=== PATIENT | male | born 1960 | race Caucasian/White ===

== ENCOUNTER 2024-09-28 13:25 | Emergency (ER) | payer MEDICARE, OTHER ==
[~2024-09-28] VITALS: Ht 188 cm; Wt 97.7 kg
[2024-09-28 13:30] VITALS: BP 132/55; RESP 24; TEMP 98.2; O2SAT 95
[2024-09-28 13:43] VITALS: PULSE 95
--- NOTE | 2024-09-28 13:43 | ED.PDOC ---
History of Present Illness HPI Comments 64 year old male with a History of DM, HTN and Depression was BIBA for the c/c of Dizziness. Pt states that he has been feeling Dizzy for the past 1x week, with an associated HOPKINS, and /D. Pt also notes of urine retention that has been onset for the past 4x days even though he noted drinking lots of Fluid. Pt notes of a Social Hx of Tobacco use, and mild Alcohol use, his last drink being this past Saturday. Pt denies any N/V or sick contact. No other symptoms or modifying factors reported at this time. Time Seen by MD: 13:38 Reviewed Notes: Nurses Notes, Electrician Refinery Notes, Medications, Allergies Allergies: Coded Allergies: Penicillins (Verified Allergy, Unknown, 09/28/24) Information Source: Patient, Emergency Med Personnel Mode of Arrival: EMS Severity: Moderate Timing: Weeks Duration: Since onset Prehospital treatment: Accucheck, Oxygen Past Medical History PAST MEDICAL HISTORY: Depression, DM, HTN Surgical History: Denies all surgeries Family History Family History: Reviewed,noncontributory to illness, No family hx of Cancer, No family hx of DM, No family hx of Heart tessa, No family hx of HTN, No family hx ofKidney tessa, No family hx of Liver tessa, No family hx of Lung tessa, No family hx of Stroke Social History Smoker: Cigarettes Alcohol: Occasionally Drugs: Denies Drug Use Lives In: Home Constitutional: denies: chills, diaphoresis, fatigue, fever, malaise, sweats, weakness, others EENTM: denies: blurred vision, double vision, ear bleeding, ear discharge, ear drainage, ear pain, ear ringing, eye pain, eye redness, hearing loss, mouth pain, mouth swelling, nasal discharge, nose bleeding, nose congestion, nose pain, photophobia, tearing, throat pain, throat swelling, voice changes, others Respiratory: denies: cough, hemoptysis, orthopnea, SOB at rest, shortness of breath, SOB with excertion, stridor, wheezing, others Cardiovascular: denies: chest pain, dizzy spells, diaphoresis, Dyspnea on exertion, edema, irregular heart beat, left arm pain, lightheadedness, palpitations, PND, syncope, others Gastrointestinal: denies: abdomen distended, abdominal pain, blood streaked bowels, constipated, diarrhea, dysphagia, difficulty swallowing, hematemesis, melena, nausea, poor appetite, poor fluid intake, rectal bleeding, rectal pain, vomiting, others Genitourinary: denies: burning, dysuria, flank pain, frequency, hematuria, incontinence, penile discharge, penile sore, pain, testicle pain, testicle swelling, urgency, others Neurological: reports: dizziness, headache; denies: fainting, left sided numbness, left sided weakness, numbness, paresthesia, pre-existing deficit, right sided numbness, right sided weakness, seizure, speech problems, tingling, tremors, weakness, others Musculoskeletal: denies: back pain, gout, joint pain, joint swelling, muscle pain, muscle stiffness, neck pain, others Integumetry: denies: bruises, change in color, change in hair/nails, dryness, laceration, lesions, lumps, rash, wounds, others Allergic/Immunocompromised: denies: Difficulty Healing, Frequent Infections, Hives, Itching, others Hematologic/Lymphatic: denies: anemia, blood clots, easy bleeding, easy bruising, swollen glands, others Endocrine: denies: excessive hunger, excessive sweating, excessive thirst, excessive urination, flushing, intolerance to cold, intolerance to heat, unexplained weight gain, unexplained weight loss, others Psychiatric: denies: anxiety, bipolar disorder, depression, hopeless, panic disorder, schizophrenia, sleepless, suicidal, others All Other Systems: Reviewed and Negative Physical Exam General Appearance: Mild Distress HEENT: Normal ENT Inspection, Pharynx Normal, TMs Normal Neck: Full Range of Motion, Non-Tender, Normal, Normal Inspection Respiratory: Chest Non-Tender, Lungs Clear, No Accessory Muscle Use, No Respiratory Distress, Normal Breath Sounds Cardiovascular: No Edema, No JVD, No Murmur, No Gallop, Normal Peripheral Pulses, Regular Rate/Rhythm Breast Exam: Deferred Gastrointestinal: No Organomegaly, Non Tender, No Pulsatile Mass, Normal Bowel Sounds, Soft Genitalia: Deferred Pelvic: Deferred Rectal: Deferred Extremities: No calf tenderness, Normal capillary refill, Normal inspection, Normal range of motion, Non-tender, No pedal edema Musculoskeletal : Apperance: Normal Neurologic: Alert, 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 Was a procedure done?: No EKG EKG : Pulse Rate (adult): 95 [place]: RAD Cardiac Rhythm: NSR Block: None Hypertrophy: None ST: Normal Differential Dx Considerations may include: Vertigo, autonomic dysfunction, generalized weakness, electrolyte imbalance X-Ray, Labs, Meds, VS Vital Signs Date Time Temp Pulse Resp B/P (MAP) Pulse Ox O2 Delivery O2 Flow Rate FiO2 09/28/24 16:07 Room Air* 0 21 09/28/24 13:43 95 09/28/24 13:39 95 09/28/24 13:30 98.2 100 24 132/55 (80) 95 98.2 Lab Test 09/28/24 13:57 Range/Units White Blood Count 14.6 H 4.4-10.8 10^3/uL Red Blood Count 5.07 4.5-5.90 10^6/uL Hemoglobin 17.7 H 13.5-17.5 g/dL Hematocrit 51.0 41.0-53.0 % Mean Corpuscular Volume 100.5 H 80.0-100.0 fL Mean Corpuscular Hemoglobin 34.9 H 28.0-32.0 pg Mean Corpuscular Hemoglobin Concent 34.7 32.0-36.0 g/dL Red Cell Distribution Width 13.1 11.8-14.3 % Platelet Count 173 140-450 10^3/uL Mean Platelet Volume 9.6 6.9-10.8 fL Neutrophils (%) (Auto) 80.7 H 37.0-80.0 % Lymphocytes (%) (Auto) 5.6 L 10.0-50.0 % Monocytes (%) (Auto) 13.0 H 0.0-12.0 % Eosinophils (%) (Auto) 0.5 0.0-7.0 % Basophils (%) (Auto) 0.2 0.0-2.0 % Neutrophils # (Auto) 11.8 H 1.6-8.6 10 ^3/uL Lymphocytes # (Auto) 0.8 0.4-5.4 10 ^3/uL Monocytes # (Auto) 1.9 H 0-1.3 10 ^3/uL Eosinophils # (Auto) 0.1 0-0.8 10 ^3/uL Basophils # (Auto) 0 0-0.2 10 ^3/uL Nucleated Red Blood Cells 0.0 % Sodium Level 122 L 136-145 mmol/L Potassium Level 4.3 3.5-5.1 mmol/L Chloride Level 87 L 98-107 mmol/L Carbon Dioxide Level 27 20-31 mmol/L Anion Gap 8 5-15 Blood Urea Nitrogen 12 9-23 mg/dL Creatinine 0.94 0.700-1.30 mg/dL Glomerular Filtration Rate Calc 89 >90 mL/min BUN/Creatinine Ratio 12.8 10.0-20.0 Serum Glucose 112 H 74-106 mg/dL Calcium Level 9.2 8.7-10.4 mg/dL Current Medications Medications (Trade) Dose Ordered Sig/Anita Route Start Time Stop Time Status Last Admin Sodium Chloride 500 ml @ 500 mls/hr Q1H ONCE IV 09/28/24 13:45 09/28/24 14:44 DC 09/28/24 13:45 IMPRESSION: 1. No acute cardiopulmonary disease. The patient was given normal saline at a 500 cc bolus The patient's CBC shows an elevated white blood cell count of 14.6 The chemistry panel is within normal limits Prior to the urine test arriving, the patient has decided that he is going to leave AMA Images Reviewed?: Images reviewed and evaluated by me Time of 1ST Reevaluation: 14:08 Reevaluation 1ST: Unchanged Patient Education/Counseling: Diagnosis, Treatment, Prognosis Family Education/Counseling: No Family Present SEPSIS Sepsis Screen Physician Orders Electrocardigram (09/28/24 13:43) Urinalysis (09/28/24 13:43) Heplock Iv (09/28/24 13:43) Automotive Design Layout Drafter (09/28/24 13:43) Blood Pressure (09/28/24 13:43) Pulse Oximetry (09/28/24 13:43) Chest Portable (09/28/24 13:43) Vital Signs Date Time Temp Pulse Resp B/P (MAP) Pulse Ox O2 Delivery O2 Flow Rate FiO2 09/28/24 16:07 Room Air* 0 21 09/28/24 13:43 95 09/28/24 13:39 95 09/28/24 13:30 98.2 100 24 132/55 (80) 95 98.2 Laboratory Tests Test 09/28/24 13:57 White Blood Count 14.6 10^3/uL (4.4-10.8) H Medications Medications Dose Ordered Sig/Anita Route Start Time Stop Time Status Last Admin Dose Admin Sodium Chloride 500 ml @ 500 mls/hr Q1H ONCE IV 09/28/24 13:45 09/28/24 14:44 DC 09/28/24 13:45 Departure 1 Departure Time of Disposition: 18:47 Impression: Primary Impression: Autonomic dysfunction Disposition: ADMITTED INPATIENT Admit to: Tele Condition: Fair Critical Care Note Critical Care Time?: No Stability Stability form required: Yes Unstable for transfer: Telemetry monitoring (Telemetry monitoring required), ED Physician Assesment (Clinical assesment) Heart Score Heart Score: Heart Score Response (Comments) Value History N/A 0 EKG N/A 0 Age N/A 0 Risk Factors N/A 0 Troponin N/A 0 Total 0 I personally scribed for FAITH PITT MD ([email or web address]) on 09/28/24 at 13:43. Electronically submitted by Gennaro Lan ([email or web address]). I personally scribed for FAITH PITT MD ([email or web address]) on 09/28/24 at 14:38. Electronically submitted by Gennaro Lan ([email or web address]). FAITH PITT MD Sep 28, 2024 13:43
[2024-09-28] MEDS: SODIUM CHLORIDE 0.9% 500 ML IV ONE (13:45)
[2024-09-28 14:14] LABS: Basophils # (auto) 0 10 ^3/uL (0-0.2); Basophils % (auto) 0.2 % (0.0-2.0); Eosinophils # (auto) 0.1 10 ^3/uL (0-0.8); Lymphocytes # (auto) 0.8 10 ^3/uL (0.4-5.4); Red Cell Distribution Width 13.1 % (11.8-14.3)
[2024-09-28 14:16] LABS: Eosinophils % (auto) 0.5 % (0.0-7.0); Hemoglobin 17.7 g/dL (13.5-17.5); Lymphocytes % (auto) 5.6 % (10.0-50.0); Mean Corpuscular Hemoglobin 34.9 pg (28.0-32.0); Mean Corpuscular Hgb Conc. 34.7 g/dL (32.0-36.0); Mean Corpuscular Volume 100.5 fL (80.0-100.0); Monocytes # (auto) 1.9 10 ^3/uL (0-1.3); Neutrophils # (auto) 11.8 10 ^3/uL (1.6-8.6); Neutrophils % (auto) 80.7 % (37.0-80.0); Platelet Count (auto) 173 10^3/uL (140-450); Red Blood Cells 5.07 10^6/uL (4.5-5.90); White Blood Cell 14.6 10^3/uL (4.4-10.8)
[2024-09-28 14:25] LABS: Anion Gap 8 (5-15); Chloride 87 mmol/L (98-107); Potassium 4.3 mmol/L (3.5-5.1); Sodium 122 mmol/L (136-145)
[2024-09-28 14:28] LABS: BUN/Creatinine Ratio 12.8 (10.0-20.0); Blood Urea Nitrogen 12 mg/dL (9-23)
[2024-09-28 14:32] LABS: Carbon Dioxide 27 mmol/L (20-31); Glucose 112 mg/dL (74-106)
[2024-09-28 14:33] LABS: Calcium 9.2 mg/dL (8.7-10.4)
--- NOTE | 2024-09-28 14:35 | DVH ---
CHEST RADIOGRAPH Indication: weakness Technique: Single frontal view of the chest was obtained Comparison: None FINDINGS: Lines and Tubes: None Lungs: No focal consolidation. Pleura: No effusion. No pneumothorax. Cardiomediastinal contours: Unremarkable Bones: No acute osseous abnormality. IMPRESSION: 1. No acute cardiopulmonary disease.
== END 2024-09-28 17:37 | disposition left against medical advice (07) ==
LOC: ER 13:25 → EDBD 13:25 → ER 17:37
DX: E11.43 Type 2 diabetes mellitus with diabetic autonomic (poly)neuropathy (principal); F17.210 Nicotine dependence, cigarettes, uncomplicated; F10.90 Alcohol use, unspecified, uncomplicated; F32.A Depression, unspecified; I10 Essential (primary) hypertension; Z88.0 Allergy status to penicillin; Y90.9 Presence of alcohol in blood, level not specified
CPT/HCPCS: 36415; 71045; 80048; 85025; 99284; J7040

== ENCOUNTER 2025-03-30 04:20 | Emergency (ER) | payer MEDICARE ==
[~2025-03-30] VITALS: Ht 188 cm; Wt 91.0 kg
--- NOTE | 2025-03-30 07:02 | ED.PDOC ---
History of Present Illness HPI Comments 64-year-old male presents to the ER with prior medical history of depression, hypertension, diabetes in the chief complaint of shortness a breath status post fall. Patient reports the he woke up 0 100 this morning to use the bathroom and as he was in the bathroom he tripped and fell hitting his nose and throat against the sink. Patient states that he currently has a very sore throat and does not speak like this in a very scrappy voice. She is currently requesting a scan to his throat. Denies any other symptoms at this time. Denies chills, fever, N/V/D, CP. No other associated symptoms, modifiers, recent injuries or sick contacts present at this time. Chief Complaint: Shortness of Breath Time Seen by MD: 07:02 Reviewed Notes: Nurses Notes, Medications, Allergies Allergies: Coded Allergies: Penicillins (Verified Allergy, Unknown, 09/28/24) Information Source: Patient Mode of Arrival: EMS Severity: Moderate Timing: Hours Duration: Since onset, Hours Prehospital treatment: None Past Medical History PAST MEDICAL HISTORY: Depression, DM, HTN Surgical History: Denies all surgeries Family History Family History: Reviewed,noncontributory to illness, Unknown Social History Smoker: Cigarettes Alcohol: Occasionally Drugs: Denies Drug Use Lives In: Home Constitutional: denies: chills, diaphoresis, fatigue, fever, malaise, sweats, weakness, others EENTM: reports: throat pain, voice changes; denies: blurred vision, double vision, ear bleeding, ear discharge, ear drainage, ear pain, ear ringing, eye pain, eye redness, hearing loss, mouth pain, mouth swelling, nasal discharge, no se bleeding, nose congestion, nose pain, photophobia, tearing, throat swelling, others Respiratory: denies: cough, hemoptysis, orthopnea, SOB at rest, shortness of breath, SOB with excertion, stridor, wheezing, others Cardiovascular: denies: chest pain, dizzy spells, diaphoresis, Dyspnea on exertion, edema, irregular heart beat, left arm pain, lightheadedness, palpitations, PND, syncope, others Gastrointestinal: denies: abdomen distended, abdominal pain, blood streaked bowels, constipated, diarrhea, dysphagia, difficulty swallowing, hematemesis, melena, nausea, poor appetite, poor fluid intake, rectal bleeding, rectal pain, vomiting, others Genitourinary: denies: burning, dysuria, flank pain, frequency, hematuria, incontinence, penile discharge, penile sore, pain, testicle pain, testicle swelling, urgency, others Neurological: denies: dizziness, fainting, headache, left sided numbness, left sided weakness, numbness, paresthesia, pre-existing deficit, right sided numbness, right sided weakness, seizure, speech problems, tingling, tremors, weakness, others Musculoskeletal: denies: back pain, gout, joint pain, joint swelling, muscle pain, muscle stiffness, neck pain, others Integumetry: denies: bruises, change in color, change in hair/nails, dryness, laceration, lesions, lumps, rash, wounds, others Allergic/Immunocompromised: denies: Difficulty Healing, Frequent Infections, Hives, Itching, others Hematologic/Lymphatic: denies: anemia, blood clots, easy bleeding, easy bruising, swollen glands, others Endocrine: denies: excessive hunger, excessive sweating, excessive thirst, excessive urination, flushing, intolerance to cold, intolerance to heat, unexplained weight gain, unexplained weight loss, others Psychiatric: denies: anxiety, bipolar disorder, depression, hopeless, panic dis order, schizophrenia, sleepless, suicidal, others All Other Systems: Reviewed and Negative Physical Exam General Appearance: Moderate Distress, Normal HEENT: Normal ENT Inspection, Pharynx Normal, TMs Normal Neck: Full Range of Motion, Non-Tender, Normal, Normal Inspection Respiratory: Chest Non-Tender, Lungs Clear, No Accessory Muscle Use, No Respiratory Distress, Normal Breath Sounds Cardiovascular: No Edema, No JVD, No Murmur, No Gallop, Normal Peripheral Pulses, Regular Rate/Rhythm Breast Exam: Deferred Gastrointestinal: No Organomegaly, Non Tender, No Pulsatile Mass, Normal Bowel Sounds, Soft Genitalia: Deferred Pelvic: Deferred Rectal: Deferred Extremities: No calf tenderness, Normal capillary refill, Normal inspection, Normal range of motion, Non-tender, No pedal edema Musculoskeletal : Apperance: Normal Neurologic: Alert, 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 Was a procedure done?: No Differential Dx Considerations may include: Alcohol abuse Electrolyte imbalance X-Ray, Labs, Meds, VS Vital Signs Date Time Temp Pulse Resp B/P (MAP) Pulse Ox O2 Delivery O2 Flow Rate FiO2 03/30/25 14:53 98.2 83 18 158/82 (107) 91 98.2 03/30/25 08:04 98.0 95 17 148/85 (106) 98.0 03/30/25 04:36 98.9 20 94 135/92 (106) 90 98.9 03/30/25 04:29 98.9 90 20 135/92 94 98.9 Lab Test 03/30/25 08:18 03/30/25 08:09 Range/Units White Blood Count 9.8 4.4-10.8 10^3/uL Red Blood Count 4.99 4.5-5.90 10^6/uL Hemoglobin 17.2 13.5-17.5 g/dL Hematocrit 50.8 41.0-53.0 % Mean Corpuscular Volume 101.7 H 80.0-100.0 fL Mean Corpuscular Hemoglobin 34.4 H 28.0-32.0 pg Mean Corpuscular Hemoglobin Concent 33.8 32.0-36.0 g/dL Red Cell Distribution Width 14.3 11.8-14.3 % Platelet Count 215 140-450 10^3/uL Mean Platelet Volume 8.7 6.9-10.8 fL Neutrophils (%) (Auto) 85.3 H 37.0-80.0 % Lymphocytes (%) (Auto) 5.0 L 10.0-50.0 % Monocytes (%) (Auto) 8.9 0.0-12.0 % Eosinophils (%) (Auto) 0.1 0.0-7.0 % Basophils (%) (Auto) 0.7 0.0-2.0 % Neutrophils # (Auto) 8.3 1.6-8.6 10 ^3/uL Lymphocytes # (Auto) 0.5 0.4-5.4 10 ^3/uL Monocytes # (Auto) 0.9 0-1.3 10 ^3/uL Eosinophils # (Auto) 0 0-0.8 10 ^3/uL Basophils # (Auto) 0.1 0-0.2 10 ^3/uL Nucleated Red Blood Cells 0.0 % Sodium Level 138 136-145 mmol/L Potassium Level 4.6 3.5-5.1 mmol/L Chloride Level 101 98-107 mmol/L Carbon Dioxide Level 28 20-31 mmol/L Anion Gap 9 5-15 Blood Urea Nitrogen 9 9-23 mg/dL Creatinine 0.82 0.700-1.30 mg/dL Glomerular Filtration Rate Calc 97 >90 mL/min BUN/Creatinine Ratio 11.0 10.0-20.0 Serum Glucose 111 H 74-106 mg/dL Calcium Level 9.4 8.7-10.4 mg/dL Total Bilirubin 0.8 0.2-1.0 mg/dL Aspartate Amino Transferase (AST) 56 H 13-40 U/L Alanine Aminotransferase (ALT) 38 7-40 U/L Alkaline Phosphatase 132 H 46-116 U/L Troponin I High Sensitivity 8 </=54 ng/L Total Protein 7.7 5.7-8.2 g/dL Albumin 4.4 3.2-4.8 g/dL Plasma/Serum Blood Alcohol < 3.0 <10 mg/dL Urine Color Yellow Yellow Urine Clarity Turbid H Clear Urine pH 6.0 5.0-9.0 Urine Specific [place] 1.010 1.001-1.035 Urine Protein Trace H Negative Urine Ketones 1+ H Negative Urine Blood 1+ H Negative /uL Urine Nitrite Negative Negative Urine Bilirubin Negative Negative Urine Urobilinogen Normal Negative mg/dL Urine Leukocyte Esterase 3+ Negative /uL Urine RBC 9 0 - 3 /hpf Urine WBC Clumps Present None Seen /hpf Urine Microscopic WBC 804 H 0-3 /HPF Urine Squamous Epithelial Cells Few <5 /hpf Urine Bacteria Few H None Seen /hpf Urine Mucus Few None Seen Urine Glucose Normal Normal mg/dL Current Medications Medications (Trade) Dose Ordered Sig/Anita Route Start Time Stop Time Status Last Admin Sodium Chloride 1,000 ml @ 1,000 mls/hr Q1H ONCE IV 03/30/25 07:00 03/30/25 07:59 DC 03/30/25 08:01 Sodium Chloride 1,000 ml @ 150 mls/hr Q6H40M ONCE IV 03/30/25 07:00 03/30/25 13:39 DC 03/30/25 09:12 Patient alert. Complaining of scratchy voice. All started after fall. Vitals stable. Answering questions. Saturation in the low side. Continues smoke cigarettes. Drinks every day. Counseled patient on effects of smoking cigarettes for 15 minutes. Counseled patient on effects of drinking for 15 minutes. Explained to the patient. Hospitalist was concerned to admit the patient. There is a concern because of swelling of the neck. Clinically normal. CT scan does reveal edema. Urinalysis shows UTI. Was given Rocephin. Transferred for higher level of care. Time of 1ST Reevaluation: 07:30 Reevaluation 1ST: Unchanged Patient Education/Counseling: Diagnosis, Treatment, Prognosis Family Education/Counseling: No Family Present SEPSIS Sepsis Screen Date sepsis recognized/suspect: Mar 30, 2025 Time Sepsis recognized/suspect: 421 Recent Procedure: No On Antibiotic Therapy: No Respiratory Rate >20: No Heart Rate >90: No Temp<36 C (96.8 F) or >38.3 C: No SBP <90 or MAP <65 mmHG: No New Acute Mental Status Change: No Is the patient on CPAP, BIPAP,: No Physician Orders Electrocardigram (03/30/25 04:34) Electrocardigram (03/30/25 05:34) Electrocardigram (03/30/25 07:34) Neck For Soft Tissue (03/30/25 06:47) Chest Portable (03/30/25 06:48) Neck With Contrast Soft (03/30/25 13:21) Imaging Transfer Request (03/30/25 15:19) Vital Signs Date Time Temp Pulse Resp B/P (MAP) Pulse Ox O2 Delivery O2 Flow Rate FiO2 03/30/25 14:53 98.2 83 18 158/82 (107) 91 98.2 03/30/25 08:04 98.0 95 17 148/85 (106) 98.0 03/30/25 04:36 98.9 20 94 135/92 (106) 90 98.9 03/30/25 04:29 98.9 90 20 135/92 94 98.9 Laboratory Tests Test 03/30/25 08:18 White Blood Count 9.8 10^3/uL (4.4-10.8) Medications Medications Dose Ordered Sig/Anita Route Start Time Stop Time Status Last Admin Dose Admin Sodium Chloride 1,000 ml @ 150 mls/hr Q6H40M ONCE IV 03/30/25 07:00 03/30/25 13:39 DC 03/30/25 09:12 Sodium Chloride 1,000 ml @ 1,000 mls/hr Q1H ONCE IV 03/30/25 07:00 03/30/25 07:59 DC 03/30/25 08:01 Departure 1 Departure Time of Disposition: 07:37 Impression: Primary Impression: Neck swelling Additional Impressions: Autonomic dysfunction UTI (urinary tract infection) Qualified Codes: N30.00 - Acute cystitis without hematuria Disposition: ADMITTED INPATIENT Admit to: Med Surg Condition: Guarded Critical Care Note Critical Care Time?: No Stability Stability form required: No Heart Score Heart Score: Heart Score Response (Comments) Value History N/A 0 EKG N/A 0 Age N/A 0 Risk Factors N/A 0 Troponin N/A 0 Total 0 I personally scribed for SIRI GLOVER MD ([email or web address]) on 03/30/25 at 07:02. Electronically submitted by Marino Robert ([email or web address]). SIRI GLOVER MD Mar 30, 2025 07:02
[2025-03-30] MEDS: SODIUM CHLORIDE 0.9% 1,000 ML IV ONE ×2 (08:01→09:12)
--- NOTE | 2025-03-30 08:05 | DVH ---
CHEST RADIOGRAPH INDICATION: sob TECHNIQUE: XY CHEST PORTABLE, frontal and lateral radiographs of the neck. Comparison: None FINDINGS: The cardiac silhouette is unremarkable. The lungs demonstrate no pulmonary airspace consolidation. The pulmonary vasculature is unremarkable. There is no pleural effusion. There is no pneumothorax. There is soft tissue prominence /edema within the subglottic/aryepiglottic fold region resulting in narrowing of the proximal trachea more pronounced on the right. Moderate to advanced cervical degenerative disc disease with prominent anterior osteophytosis. Prominence of the prevertebral tissues at C5 through C7 IMPRESSION: There is soft tissue prominence /edema within the subglottic/aryepiglottic fold region resulting in narrowing of the proximal trachea more pronounced on the right. Recommend CT neck with contrast for further evaluation. No pulmonary airspace consolidation.
[2025-03-30 08:40] LABS: Hemoglobin 17.2 g/dL (13.5-17.5)
[2025-03-30 08:49] LABS: Hematocrit 50.8 % (41.0-53.0); Mean Corpuscular Hemoglobin 34.4 pg (28.0-32.0); Mean Corpuscular Volume 101.7 fL (80.0-100.0); Nucleated Red Blood Cells % 0.0 %
[2025-03-30 08:56] LABS: Alanine Aminotransferase 38 U/L (7-40); Albumin 4.4 g/dL (3.2-4.8); Anion Gap 9 (5-15); BUN/Creatinine Ratio 11.0 (10.0-20.0); Bilirubin, Total 0.8 mg/dL (0.2-1.0); Blood Urea Nitrogen 9 mg/dL (9-23); Calcium 9.4 mg/dL (8.7-10.4); Carbon Dioxide 28 mmol/L (20-31); Chloride 101 mmol/L (98-107); Potassium 4.6 mmol/L (3.5-5.1); Sodium 138 mmol/L (136-145); Total Protein 7.7 g/dL (5.7-8.2)
[2025-03-30 08:57] LABS: Alkaline Phosphatase 132 U/L (46-116); Glucose 111 mg/dL (74-106)
--- NOTE | 2025-03-30 09:33 | DI ---
CHEST RADIOGRAPH INDICATION: sob TECHNIQUE: XY CHEST PORTABLE, frontal and lateral radiographs of the neck. Comparison: None FINDINGS: The cardiac silhouette is unremarkable. The lungs demonstrate no pulmonary airspace consolidation. The pulmonary vasculature is unremarkable. There is no pleural effusion. There is no pneumothorax. There is soft tissue prominence /edema within the subglottic/aryepiglottic fold region resulting in narrowing of the proximal trachea more pronounced on the right. Moderate to advanced cervical degenerative disc disease with prominent anterior osteophytosis. Prominence of the prevertebral tissues at C5 through C7 IMPRESSION: There is soft tissue prominence /edema within the subglottic/aryepiglottic fold region resulting in narrowing of the proximal trachea more pronounced on the right. Recommend CT neck with contrast for further evaluation. No pulmonary airspace consolidation. FELIX
--- NOTE | 2025-03-30 10:18 | DVH ---
INDICATION: fall TECHNIQUE: XY NECK FOR SOFT TISSUEXY Comparison: None FINDINGS/IMPRESSION: Again noted is soft tissue prominence in the prevertebral tissues at C5 through C7. There is compression of the trachea, [id number]-left /subglottic narrowing. Recommend CT neck with contrast to evaluate. There is moderate to advanced multilevel disc space narrowing with endplate sclerosis, anterior osteophytosis most pronounced at C5-6, C6-7. Moderate cervical facet hypertrophic changes.
[2025-03-30 12:53] LABS: Urine Protein, UAD TRACE (Negative); Urine WBC Clumps PRESENT /hpf (None Seen)
--- NOTE | 2025-03-30 15:00 | DVH ---
EXAM: CT NECK WITH CONTRAST SOFT INDICATION: trachea compression S/P fall Exam Date: 03/30/2025 01:39 PM COMPARISON: XY NECK FOR SOFT TISSUE on DOS: 03/30/25 TECHNIQUE: CT of the neck with intravenous contrast. RADIATION DOSE: CTDIvol: 24.46 mGy, DLP: 824.85 mGy*cm CONTRAST: Contrast: Omnipaque 300 Contrast injected: 100 ml FINDINGS: Mild retropharyngeal soft tissue thickening at the level of the hypopharynx and larynx. Air column remains widely patent. There is no evidence of cervical mass lesion, pathologically enlarged lymph nodes or fluid collection. The fat planes of the neck appear intact. The airway and larynx are unremarkable. The parotid, submandibular and thyroid glands are unremarkable. The vascular structures of the neck appear patent. The visualized lung apices are clear. The limited visualized portions of the brain are unremarkable. The osseous structures are unremarkable. IMPRESSION: Mild retropharyngeal soft tissue thickening / edema at the level of the hypopharynx and larynx without airway compromise at this time.
[2025-03-30] MEDS: IOHEXOL 350 MG/ML 100ML IJ ONE (15:34)
[2025-03-30] MEDS: ONDANSETRON HCL 4 MG/2 ML VIAL IV ONE (15:57)
[2025-03-30] MEDS: HYDROmorphone HCL 2 MG/ML VL/or syr IV ONE (15:58)
[2025-03-30 16:08] VITALS: BP 149/71; PULSE 71; RESP 16; TEMP 98.2; O2SAT 95
== END 2025-03-30 15:16 | disposition short-term general hospital (02) ==
LOC: EDBD 04:20 → ER 04:20
DX: G90.9 Disorder of the autonomic nervous system, unspecified (principal); N39.0 Urinary tract infection, site not specified; R22.1 Localized swelling, mass and lump, neck; F10.90 Alcohol use, unspecified, uncomplicated; F17.210 Nicotine dependence, cigarettes, uncomplicated; I10 Essential (primary) hypertension; E11.43 Type 2 diabetes mellitus with diabetic autonomic (poly)neuropathy; F32.A Depression, unspecified; Z88.0 Allergy status to penicillin
CPT/HCPCS: 36415; 70360; 70491; 71045; 80053; 80320; 81001; 82947; 84484; 85025; 96361; 96365; 96375; 99285; 99407; J0696; J1171; J2405; J7030; Q9967